=== PATIENT | female | born 1945 | race Asian ===

== ENCOUNTER 2017-07-03 09:34 | Inpatient (IN) | payer MEDICARE, MEDICAID ==
[2017-06-30 10:32] LABS: HEMATOCRIT 40.9 % (34.6-47.8); WHITE BLOOD COUNT 7.1 x10^3/uL (3.4-10)
[2017-06-30 10:42] LABS: BLOOD UREA NITROGEN 19 mg/dL (7-18)
[2017-06-30 10:45] LABS: ASPARTATE AMINO TRANSFERASE 19 U/L (15-37)
[~2017-07-03] VITALS: Ht 167.6 cm; Wt 85.4 kg
[~2017-07-03 09:34] MED LIST: GLIP5TAB10 PO; LISI-170 PO; PRAV40TA2 PO
[2017-07-03] MEDS ORDERED: LACTATED RINGERS 1,000 ML IV SCH ×2 (10:08→19:30)
[2017-07-03] MEDS ORDERED: CEFAZOLIN 1,000 MG ONE (10:42)
[2017-07-03] MEDS ORDERED: ROCURONIUM 10 MG/ML ONE (10:42)
[2017-07-03] MEDS ORDERED: PROPOFOL 10 MG/ML, 20ML ONE (10:42)
[2017-07-03] MEDS ORDERED: PROPOFOL 10 MG/ML, 50ML ONE (10:42)
[2017-07-03] MEDS ORDERED: LIDOCAINE 1%, 2ML ONE (11:49)
[2017-07-03] MEDS ORDERED: FENTANYL PF 250 MCG/5ML ONE (12:03)
[2017-07-03] MEDS ORDERED: KETAMINE 10 MG/ML, 20ML ONE (13:43)
[2017-07-03] MEDS ORDERED: HYDROmorphone 1 MG/ML, 1ML ONE ×2 (15:36→16:12)
[2017-07-03] MEDS ORDERED: THROMBIN 5,000 UNIT VIAL TP ONE (15:49)
[2017-07-03] MEDS ORDERED: PROMETHAZINE 25 MG/ML, 1ML IV PRN (16:00)
[2017-07-03] MEDS ORDERED: FENTANYL PF 100 MCG/2ML IV PRN (16:00)
[2017-07-03] MEDS ORDERED: ACETAMINOPHEN 325 MG TABLET PO PRN (16:00)
[2017-07-03] MEDS ORDERED: METOPROLOL 1 MG/ML, 5ML IV PRN (16:00)
[2017-07-03] MEDS ORDERED: ALBUTEROL/IPRATROPIUM 2.5MG/0.5MG, 3 ML NPPB PRN (16:00)
[2017-07-03] MEDS ORDERED: hydrALAzine 20 MG/ML, 1ML IV PRN (16:00)
[2017-07-03] MEDS ORDERED: HYDROmorphone 1 MG/ML, 1ML IV PRN (16:00)
[2017-07-03 16:23] LABS: HEMATOCRIT 31.4 % (34.6-47.8); HEMOGLOBIN 10.1 g/dL (11.7-16.4); WHITE BLOOD COUNT 13.4 x10^3/uL (3.4-10)
[2017-07-03] MEDS ORDERED: ALBUMIN HUMAN 5% 500 ML ONE (16:59)
[2017-07-03 18:08] LABS: ABG COLLECTION SITE ARTERIAL LINE
[2017-07-03] MEDS: PROPOFOL 100 ML IV PRN (19:28)
[2017-07-03] MEDS ORDERED: PHARMACY MAY ADJ FOR RENAL FX MC SCH (19:30)
[2017-07-03] MEDS ORDERED: LIDOCAINE-MPF 1%, 2ML ENDO PRN (19:30)
[2017-07-03 19:51] LABS: HEMATOCRIT 33.6 % (34.6-47.8); HEMOGLOBIN 10.9 g/dL (11.7-16.4); WHITE BLOOD COUNT 10.1 x10^3/uL (3.4-10)
[2017-07-03 19:56] LABS: ASPARTATE AMINO TRANSFERASE 17 U/L (15-37); BLOOD UREA NITROGEN 10 mg/dL (7-18)
[2017-07-03 20:00] VITALS: BP 150/86
[2017-07-03] MEDS ORDERED: MAGNESIUM SULFATE PMX 2GM/50ML 50 ML IV ONE (20:30)
[2017-07-03] MEDS: POTASSIUM CHLORIDE 20 MEQ in D5%-0.9% NACL 1,000 ML IV SCH (20:41)
[2017-07-03] MEDS: ALBUMIN HUMAN 5% 500 ML IV SCH (21:06)
[2017-07-03] MEDS: FAMOTIDINE 20 MG/2 ML IV SCH (21:07)
[2017-07-03] MEDS: ENOXAPARIN 40 MG/0.4 ML SQ SCH (21:09)
[2017-07-04] MEDS: PROPOFOL 100 ML IV PRN ×4 (01:01→15:36)
[2017-07-04 04:00] VITALS: BP 157/68
[2017-07-04 04:16] LABS: ABG COLLECTION SITE ARTERIAL LINE
[2017-07-04 04:23] LABS: HEMATOCRIT 31.8 % (34.6-47.8); HEMOGLOBIN 10.2 g/dL (11.7-16.4); WHITE BLOOD COUNT 8.7 x10^3/uL (3.4-10)
[2017-07-04 04:25] LABS: BLOOD UREA NITROGEN 10 mg/dL (7-18)
[2017-07-04] MEDS: POTASSIUM CHLORIDE 20 MEQ in D5%-0.9% NACL 1,000 ML IV SCH ×3 (06:05→22:05)
[2017-07-04] MEDS: ALBUMIN HUMAN 5% 500 ML IV SCH (06:40)
[2017-07-04] MEDS ORDERED: INSULIN ASPART 100 UNITS/ML, PEN SQ-INSULIN SCH (07:30)
[2017-07-04] MEDS: FAMOTIDINE 20 MG/2 ML IV SCH ×2 (08:08→21:44)
[2017-07-04] MEDS ORDERED: MORPHINE SULFATE 4 MG/ML, 1ML IVPush PRN (11:30)
[2017-07-04] MEDS: ENOXAPARIN 40 MG/0.4 ML SQ SCH (18:36)
[2017-07-04] MEDS: INSULIN ASPART 100 UNITS/ML, PEN SQ-INSULIN SCH (21:44)
[2017-07-05] MEDS: PROPOFOL 100 ML IV PRN ×2 (02:56→14:11)
[2017-07-05 04:04] LABS: HEMATOCRIT 26.2 % (34.6-47.8); HEMOGLOBIN 8.4 g/dL (11.7-16.4); WHITE BLOOD COUNT 6.8 x10^3/uL (3.4-10)
[2017-07-05 04:14] VITALS: BP 94/54
[2017-07-05 04:16] LABS: BLOOD UREA NITROGEN 8 mg/dL (7-18)
[2017-07-05 04:31] LABS: ABG COLLECTION SITE ARTERIAL LINE
[2017-07-05] MEDS: INSULIN ASPART 100 UNITS/ML, PEN SQ-INSULIN SCH ×4 (05:15→20:48)
[2017-07-05] MEDS: POTASSIUM CHLORIDE 20 MEQ in D5%-0.9% NACL 1,000 ML IV SCH (07:50)
[2017-07-05] MEDS ORDERED: POTASSIUM CHLORIDE 20 MEQ in SODIUM CHLORIDE 0.45% 1,000 ML IV SCH (10:30)
[2017-07-05] MEDS: FAMOTIDINE 20 MG/2 ML IV SCH ×2 (10:32→20:47)
[2017-07-05] MEDS: KETOROLAC 30 MG/1 ML IM SCH ×3 (10:32→22:45)
[2017-07-05] MEDS: POTASSIUM CHLORIDE 20 MEQ in SODIUM CHLORIDE 0.45% 1,000 ML IV SCH ×2 (12:07→20:22)
[2017-07-05 12:26] LABS: HEMOGLOBIN 7.9 g/dL (11.7-16.4)
[2017-07-05] MEDS ORDERED: NOREPINEPHRINE 4 MG in SODIUM CHLORIDE 0.9% 246 ML IV PRN (17:00)
[2017-07-05] MEDS ORDERED: FENTANYL PF 2,500 MCG in SODIUM CHLORIDE 0.9% 200 ML IV PRN (17:00)
[2017-07-05] MEDS ORDERED: SODIUM CHLORIDE 0.9% 1,000ML IVBOLUS ONE (17:30)
[2017-07-05] MEDS ORDERED: MORPHINE SULFATE 4 MG/ML, 1ML IVPush PRN (17:30)
[2017-07-05 17:55] LABS: HEMATOCRIT 24.8 % (34.6-47.8); WHITE BLOOD COUNT 5.8 x10^3/uL (3.4-10)
[2017-07-05 18:05] LABS: BLOOD UREA NITROGEN 8 mg/dL (7-18)
[2017-07-05] MEDS: ENOXAPARIN 40 MG/0.4 ML SQ SCH (19:37)
[2017-07-06] VITALS (8 sets, daily range): BP systolic 94–158; BP diastolic 51–89
[2017-07-06] MEDS: PROPOFOL 100 ML IV PRN (00:22)
[2017-07-06] MEDS: OXYcodone 5 MG/5 ML ORAL.SOL UDC PO PRN (01:48)
[2017-07-06] MEDS: INSULIN ASPART 100 UNITS/ML, PEN SQ-INSULIN SCH ×4 (03:00→21:25)
[2017-07-06] MEDS: POTASSIUM CHLORIDE 20 MEQ in SODIUM CHLORIDE 0.45% 1,000 ML IV SCH ×3 (04:29→21:24)
[2017-07-06] MEDS: KETOROLAC 30 MG/1 ML IM SCH ×4 (04:32→21:24)
[2017-07-06 04:37] LABS: ABG COLLECTION SITE RIGHT RADIAL; COLLATERAL CIRCULATION TESTING NORMAL
[2017-07-06 04:52] LABS: BLOOD UREA NITROGEN 7 mg/dL (7-18)
[2017-07-06] MEDS ORDERED: MAGNESIUM SULFATE PMX 2GM/50ML 50 ML IV ONE (07:30)
[2017-07-06 08:03] LABS: HEMOGLOBIN 8.3 g/dL (11.7-16.4); WHITE BLOOD COUNT 6.2 x10^3/uL (3.4-10)
[2017-07-06] MEDS: FAMOTIDINE 20 MG/2 ML IV SCH ×2 (09:15→21:24)
[2017-07-06] MEDS ORDERED: ALBUTEROL SULFATE 2.5 MG/3 ML NPPB PRN (15:00)
[2017-07-06] MEDS: ENOXAPARIN 40 MG/0.4 ML SQ SCH (21:25)
[2017-07-07] VITALS: BP 135/78
[2017-07-07 02:05] VITALS: BP 130/71
[2017-07-07] MEDS: INSULIN ASPART 100 UNITS/ML, PEN SQ-INSULIN SCH ×4 (03:25→21:35)
[2017-07-07] MEDS: KETOROLAC 30 MG/1 ML IM SCH ×4 (04:20→21:36)
[2017-07-07] MEDS: POTASSIUM CHLORIDE 20 MEQ in SODIUM CHLORIDE 0.45% 1,000 ML IV SCH ×2 (06:24→16:07)
[2017-07-07 06:49] LABS: HEMATOCRIT 24.7 % (34.6-47.8); WHITE BLOOD COUNT 3.2 x10^3/uL (3.4-10)
[2017-07-07 06:54] LABS: ASPARTATE AMINO TRANSFERASE 41 U/L (15-37); BLOOD UREA NITROGEN 7 mg/dL (7-18)
[2017-07-07 07:35] VITALS: BP 129/69
[2017-07-07] MEDS: FAMOTIDINE 20 MG/2 ML IV SCH (08:44)
[2017-07-07] MEDS: OXYcodone 5 MG/5 ML ORAL.SOL UDC PO PRN (08:54)
[2017-07-07] MEDS: MULTIVITAMINS WITH IRON TABLET PO SCH (09:21)
[2017-07-07 14:00] VITALS: BP 145/76
[2017-07-07] MEDS: OXYcodone/APAP 5/325MG TABLET PO PRN (17:22)
[2017-07-07] MEDS: ONDANSETRON 2MG/ML, 2ML IVPush PRN (17:32)
[2017-07-07 18:54] VITALS: BP 141/76
[2017-07-07] MEDS: FAMOTIDINE 20 MG TABLET PO SCH (21:00)
[2017-07-07] MEDS: ENOXAPARIN 40 MG/0.4 ML SQ SCH (21:36)
[2017-07-08] MEDS: POTASSIUM CHLORIDE 20 MEQ in SODIUM CHLORIDE 0.45% 1,000 ML IV SCH ×3 (01:22→19:47)
[2017-07-08 02:45] VITALS: BP 130/68
[2017-07-08] MEDS: KETOROLAC 30 MG/1 ML IM SCH ×4 (02:48→20:03)
[2017-07-08] MEDS: INSULIN ASPART 100 UNITS/ML, PEN SQ-INSULIN SCH ×4 (02:52→20:01)
[2017-07-08 05:16] LABS: BLOOD UREA NITROGEN 10 mg/dL (7-18)
[2017-07-08 07:17] VITALS: BP 145/81
[2017-07-08] MEDS: FAMOTIDINE 20 MG TABLET PO SCH ×2 (08:49→20:01)
[2017-07-08] MEDS: MULTIVITAMINS WITH IRON TABLET PO SCH (08:49)
[2017-07-08] MEDS: DIPHENOXYLATE/ATROPINE TABLET PO PRN ×2 (12:17→20:01)
[2017-07-08] MEDS: ONDANSETRON 2MG/ML, 2ML IVPush PRN (12:17)
[2017-07-08 13:49] VITALS: BP 155/83
[2017-07-08] MEDS: OXYcodone/APAP 5/325MG TABLET PO PRN ×2 (14:17→20:01)
[2017-07-08] MEDS: ENOXAPARIN 40 MG/0.4 ML SQ SCH (20:01)
[2017-07-09 00:23] VITALS: BP 132/81
[2017-07-09 02:00] VITALS: BP 135/83
[2017-07-09] MEDS: INSULIN ASPART 100 UNITS/ML, PEN SQ-INSULIN SCH ×3 (03:00→22:12)
[2017-07-09] MEDS: DIPHENOXYLATE/ATROPINE TABLET PO PRN ×3 (03:06→15:52)
[2017-07-09] MEDS: OXYcodone/APAP 5/325MG TABLET PO PRN (03:06)
[2017-07-09] MEDS: KETOROLAC 30 MG/1 ML IM SCH ×4 (04:00→22:06)
[2017-07-09 04:42] LABS: BLOOD UREA NITROGEN 10 mg/dL (7-18)
[2017-07-09] MEDS: POTASSIUM CHLORIDE 20 MEQ in SODIUM CHLORIDE 0.45% 1,000 ML IV SCH ×2 (07:11→08:30)
[2017-07-09 08:30] VITALS: BP 152/83
[2017-07-09] MEDS: FAMOTIDINE 20 MG TABLET PO SCH ×2 (10:19→22:06)
[2017-07-09] MEDS: MULTIVITAMINS WITH IRON TABLET PO SCH (10:19)
[2017-07-09 12:00] VITALS: BP 133/75
[2017-07-09] MEDS ORDERED: ACETAMINOPHEN 325 MG TABLET PO PRN (16:00)
[2017-07-09] MEDS ORDERED: ONDANSETRON 2MG/ML, 2ML IVPush PRN (16:00)
[2017-07-09] MEDS ORDERED: PROMETHAZINE 25 MG/ML, 1ML IV PRN (16:00)
[2017-07-09] MEDS ORDERED: DIPHENOXYLATE/ATROPINE TABLET PO PRN (16:00)
[2017-07-09 19:10] VITALS: BP 142/90
[2017-07-09] MEDS: ENOXAPARIN 40 MG/0.4 ML SQ SCH (22:06)
[2017-07-10 00:16] VITALS: BP 121/75
[2017-07-10] MEDS: INSULIN ASPART 100 UNITS/ML, PEN SQ-INSULIN SCH ×4 (03:00→21:03)
[2017-07-10] MEDS: KETOROLAC 30 MG/1 ML IM SCH (04:13)
[2017-07-10 05:06] LABS: HEMATOCRIT 28.3 % (34.6-47.8); HEMOGLOBIN 9.1 g/dL (11.7-16.4); WHITE BLOOD COUNT 5.1 x10^3/uL (3.4-10)
[2017-07-10 05:15] LABS: BLOOD UREA NITROGEN 9 mg/dL (7-18)
[2017-07-10 07:48] VITALS: BP 116/78
[2017-07-10] MEDS: MULTIVITAMINS WITH IRON TABLET PO SCH (08:53)
[2017-07-10] MEDS: FAMOTIDINE 20 MG TABLET PO SCH ×2 (08:53→20:54)
[2017-07-10] MEDS: POTASSIUM CHLORIDE 20 MEQ in SODIUM CHLORIDE 0.45% 1,000 ML IV SCH (10:00)
[2017-07-10] MEDS ORDERED: MAGNESIUM SULFATE 1 GM in SODIUM CHLORIDE 0.9% 50 ML IV ONE (12:00)
[2017-07-10 14:01] VITALS: BP 126/81
[2017-07-10 18:41] VITALS: BP 133/85
[2017-07-10] MEDS: ENOXAPARIN 40 MG/0.4 ML SQ SCH (20:55)
[2017-07-11] VITALS (10 sets, daily range): BP systolic 148–167; BP diastolic 75–92
[2017-07-11 05:06] LABS: BLOOD UREA NITROGEN 6 mg/dL (7-18)
[2017-07-11] MEDS: INSULIN ASPART 100 UNITS/ML, PEN SQ-INSULIN SCH ×2 (07:38→11:27)
[2017-07-11] MEDS: MULTIVITAMINS WITH IRON TABLET PO SCH (07:40)
[2017-07-11] MEDS: FAMOTIDINE 20 MG TABLET PO SCH (07:40)
== END 2017-07-11 15:16 | DRG 736 ==
LOC: ORIP 09:34 → CCU 17:34 → 5SO 07-06 14:39 → 3NW 07-06 19:37
PROVIDERS: ADMIT Specialist; ATTEND Specialist
PROC: 0UT70ZZ Resection of Bilateral Fallopian Tubes, Open Approach (ICD-10-PCS; 2017-07-03)
PROC: 0UT90ZZ Resection of Uterus, Open Approach (ICD-10-PCS; 2017-07-03)
PROC: 0UTC0ZZ Resection of Cervix, Open Approach (ICD-10-PCS; 2017-07-03)
PROC: 5A1945Z Respiratory Ventilation, 24-96 Consecutive Hours (ICD-10-PCS; 2017-07-03)
PROC: 0BH17EZ Insertion of Endotracheal Airway into Trachea, Via Natural or Artificial Opening (ICD-10-PCS; 2017-07-03)
PROC: 0DBS0ZZ (ICD-10-PCS; 2017-07-03)
PROC: 0DBT0ZZ (ICD-10-PCS; 2017-07-03)
PROC: 30233N1 Transfusion of Nonautologous Red Blood Cells into Peripheral Vein, Percutaneous Approach (ICD-10-PCS; 2017-07-03)
PROC: 0UT20ZZ Resection of Bilateral Ovaries, Open Approach (ICD-10-PCS; principal; 2017-07-03 11:00)
DX: C56.1 Malignant neoplasm of right ovary (principal); E43 Unspecified severe protein-calorie malnutrition; E87.4 Mixed disorder of acid-base balance; C48.2 Malignant neoplasm of peritoneum, unspecified; E87.8 Other disorders of electrolyte and fluid balance, not elsewhere classified; I95.9 Hypotension, unspecified; C56.2 Malignant neoplasm of left ovary; D64.9 Anemia, unspecified; J98.11 Atelectasis; E11.9 Type 2 diabetes mellitus without complications; E83.42 Hypomagnesemia; I10 Essential (primary) hypertension; E86.1 Hypovolemia; Z75.1 Person awaiting admission to adequate facility elsewhere; Z79.84 Long term (current) use of oral hypoglycemic drugs; Z79.899 Other long term (current) drug therapy; Z68.30 Body mass index [BMI] 30.0-30.9, adult
CPT/HCPCS: 36415; 36600; 70450; 71010; 71020; 74000; 80048; 80053; 81001; 82040; 82330; 82803; 82947; 82962; 83605; 83735; 84132; 84295; 84478; 85014; 85018; 85025; 85610; 85730; 86850; 86900; 86923; 87070; 87081; 87205; 87324; 88307; 88309; 88341; 88342; 93005; 94002; 94003; 94150; C1729; J0690; J1170; J1650; J1815; J1885; J2270; J2405; J2704; J3010; J3475; J3480; J7042; P9045; C1765; C1769; G0461; J7030; J7120; P9016; S0028